=== PATIENT | male | born 1940 | race Caucasian/White ===

== ENCOUNTER 2020-08-27 10:13 | Emergency (ER) | payer MEDICARE, OTHER, SELFPAY ==
[2020-08-27 10:14] VITALS: BP 160/88; PULSE 86; RESP 25; TEMP 36.9; O2SAT 94; BMI 23.9
--- NOTE | 2020-08-27 10:18 | CT_ITS ---
STUDY: CT BRAIN WITHOUT CONTRAST REASON FOR EXAM: Male, 80 years old. Altered mental status. History of lymphoma. RADIATION DOSAGE (If Supplied By Facility): CTDIvol = ( 44.99 ) mGy, DLP = ( 846.73 ) mGycm TECHNIQUE: Transaxial CT imaging of the brain was performed without administration of intravenous contrast material. Individualized dose optimization techniques were used for this CT. COMPARISON: No relevant priors. FINDINGS: Normal soft tissue structures. Normal calvarium. There is moderate cerebral atrophy with widening of the extra-axial spaces and ventricular dilatation. There are areas of decreased attenuation within the white matter tracts of the supratentorial brain, consistent with microvascular disease changes. Normal basal ganglia and thalami. Normal brainstem. Normal cerebellum. There is no intracranial hemorrhage. There are no findings of an acute ischemic infarction. Atherosclerotic calcification of the cavernous portions of the internal carotid arteries bilaterally. Opacification of the left sphenoid sinus. Mucosal thickening of the right sphenoid sinus. CT/Brain/Head without Contrast IMPRESSION: Chronic involutional changes of the brain. Electronically Signed: Woodrow Camp MD at 10:58 EDT , Service support ,
--- NOTE | 2020-08-27 10:18 | EKG12_ITS ---
Test Reason : Blood Pressure : / mmHG Vent. Rate : 079 BPM Atrial Rate : 079 BPM P-R Int : 130 ms QRS Dur : 070 ms QT Int : 354 ms P-R-T Axes : 020 004 028 degrees QTc Int : 405 ms Normal sinus rhythm Normal ECG Confirmed by BUDDY PAL, DAVID ([id number]), photographic editor JEREMIAH HAMEED ([id number]) on 08/28/2020 2:20:08 PM Referred By: ERICKA Confirmed By:DAVID GOODWIN MD
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
--- NOTE | 2020-08-27 10:23 | NURSING ---
NO OLD EKGS
[2020-08-27 10:40] LABS: Bedside Glucose 110 mg/dL (70-110)
--- NOTE | 2020-08-27 10:45 | RAD_ITS ---
STUDY: X-RAY CHEST REASON FOR EXAM: Male, 80 years old. Altered mental status TECHNIQUE: Single AP portable view of the chest. COMPARISON: None. FINDINGS: EKG electrodes are seen. The lungs are clear and expanded. There is no demonstrated pleural abnormality. Normal size heart. Normal mediastinum and kyle. Normal visualized pulmonary arteries. There is atherosclerotic tortuosity of the aortic arch and descending thoracic aorta. There are diffuse degenerative changes of the visualized thoracic spine. There is degenerative osteoarthritis of the bilateral shoulders. There is no demonstrated abnormality of the visualized soft tissue structures of the upper abdomen. RAD/Chest 1 View (Portable) IMPRESSION: No acute abnormality seen. Electronically Signed: Woodrow Camp MD at 11:01 EDT , Service support ,
[2020-08-27 10:57] LABS: ALB/GLOB Ratio 0.9 RATIO (0.9-2.4); AST(SGOT) 17 U/L (15-37); Alanine Aminotransfer ALT/SGPT 28 U/L (16-61); Albumin, Serum 3.4 g/dL (3.2-5.0); Alkaline Phosphatase 71 U/L (45-117); Anion Gap 3 (5-15); BUN 10 mg/dL (7-18); BUN/Creat Ratio 11.3 RATIO (10-20); Calcium,Total 9.4 mg/dL (8.5-10.1); Chloride 105 mmol/L (98-107); Creatinine, Serum 0.88 mg/dL (0.70-1.30); EST Glomerular Filtration Rate 88 mL/min (>60); Est Glom Filt Rate - Afr Amer 107 mL/min (>60); Estimated Creatinine Clearance 71.31 ml/min; Globulin 3.7 g/dL (2.2-4.2); Glucose 111 mg/dL (74-106); Potassium 4.1 mmol/L (3.5-5.1); Protein, Total 7.1 g/dL (6.4-8.2); Sodium Level 140 mmol/L (136-145); Troponin-I HS 4.5 pg/mL (3.0-78.5)
[2020-08-27 10:58] LABS: Alcohol, Blood (Medical)-Serum < 3.0 mg/dL
--- NOTE | 2020-08-27 11:00 | CM.ED ---
SOCIAL WORK Referral Source: Dr. Espinoza Reason for Consult: Discharge planning/Hospice Informed by Dr. Espinoza and nursing, patient from home with [facility]. en route to hospital. Call to Alma Rosa with [facility]. Per Alma Rosa, was planning on [facility]. Alma Rosa states was trying to make decision on code status and was educated on DNR-CCA and DNR-CC. Dr. Espinoza to discuss code status with upon arrival. Anticipate transfer to [facility]. Bouchra Barnard MSW, DIRECTOR OF PERIOPERATIVE SERVICES
[2020-08-27 11:06] LABS: Absolute Lymphocyte Count 0.53 X10^3/uL (0.83-4.51); Absolute Neutrophil Count 4.3 X10^3/uL (2.0-7.7); Basophil# 0.05 X10^3/uL; Basophil% 0.8 % (0-1); Eosinophil# 0.18 X10^3/uL; Eosinophils% 3.1 % (0-5); Hematocrit 43.3 % (40-54); Hemoglobin 14.3 g/dL (13.0-16.5); Lymphocyte # 0.53 X10^3/ul (0.83-4.51); Mean Corpuscular Hgb 28.3 pg (27.0-32.0); Mean Corpuscular Volume 85.7 fL (80-94); Mean Platelet Vol. 9.2 fl (6.2-12.0); Monocyte# 0.78 X10^3/uL; Monocyte% 13.2 % (0-10); NRBC Flagged by Analyzer 0 % (0-5); Neutrophil # 4.33 X10^3/uL (2.7-7.7); Neutrophil % 73.4 % (47-70); POSITIVE DIFFERENTIAL YES; Platelet Count 312 K/mm3 (150-450); RBC Distribution Width CV 13.4 % (11.6-14.6); RBC Distribution Width SD 41.6 fl (35.1-43.9); Red Blood Count 5.05 M/mm3 (4.6-6.2); White Blood Count 5.9 K/mm3 (4.4-11.0)
[2020-08-27 11:13] LABS: Differential Indicated SCAN CRITERIA MET
[2020-08-27 11:40] LABS: Differential Comment SCANNED
[2020-08-27 12:00] LABS: Mucous, Urine 0 SEEN /hpf (<or=2+); Squamous Epithelial Cells - UA 0 SEEN /hpf (0-5); White Blood Cells 0 SEEN /hpf (0-5)
--- NOTE | 2020-08-27 12:00 | CM.ED ---
SOCIAL WORK Met with in room. with questions for Hospice and is wanting patient transferred to inpatient hospice. This worker to update [facility]. Bouchra Barnard, HOT MILL TIN ROLLER, SURVEY DATA TECHNICIAN
[2020-08-27 12:03] LABS: Color, Urine Yellow (Yellow); Glucose, Dipstick Normal (Normal); Ketone-Dipstick Negative (Negative); Leukocyte Esterase-Dipstick Negative /ul (Negative); Nitrite-Dipstick Negative (Negative); Occult Blood-Urine 150 /ul (Negative); Protein-Dipstick Negative (Negative); Specific Gravity, Urine 1.015 (1.002-1.030); Urine Bilirubin Dipstick Negative (Negative); Urine Clarity Cloudy (Clear); Urine Urobilinogen Normal (Normal)
--- NOTE | 2020-08-27 12:08 | CM.ED ---
SOCIAL WORK Hospice nurse to be in to meet with patient and . Staff updated. Bouchra Barnard, LINUX SUPPORT ENGINEER, RIGGING FOREMAN
[2020-08-27 12:11] LABS: Red Blood Cells-Urine 25-50 SEEN /hpf (0-5)
[2020-08-27 12:12] LABS: Amorphous Sediment 1+; Bacteria 2+ /hpf (None Seen)
--- NOTE | 2020-08-27 12:17 | CCN.REFER ---
is poa and states hospice never had her do a dnr and signs a drcc-a. she says she does not know if he is hospice or palliative. says the cancer is now in remission.
[2020-08-27 12:21] VITALS: BP 145/82; PULSE 66; RESP 16; O2SAT 94
[2020-08-27 12:23] LABS: Amphetamine Urine VISTA NEGATIVE (<1000 ng/mL); Barbiturate Urine VISTA NEGATIVE (< 200 ng/mL); Benzodiazepine Urine VISTA NEGATIVE (< 200 ng/mL); Cocaine Urine VISTA NEGATIVE (< 300 ng/mL); Ecstacy Urine VISTA NEGATIVE (< 500 ng/mL); Methadone Urine VISTA NEGATIVE (< 300 ng/mL); PCP Urine VISTA NEGATIVE (< 25 ng/mL); THC Urine VISTA NEGATIVE (< 50 ng/mL); Vista UDS pH Range 7
[2020-08-27 12:29] VITALS: TEMP 37.1
--- NOTE | 2020-08-27 13:06 | ED.RN ---
DNRCC signed by /POA
--- NOTE | 2020-08-27 13:16 | ED.RN ---
Hospice here and working on talking with Dr Hall for transport to their facility for management of his symptoms
[2020-08-27 14:02] VITALS: BP 154/82; PULSE 72; RESP 14; TEMP 36.2; O2SAT 97
[2020-08-27 14:04] VITALS: BP 154/82; PULSE 72; RESP 14; TEMP 36.2; O2SAT 97
--- NOTE | 2020-08-27 14:10 | NURSING ---
rport given to jimenez at [facility] and aware eta of physicians is 1430 here
== END 2020-08-27 15:15 | disposition hospice, inpatient (51) ==
PROVIDERS: Emergency Provider Student in an Organized Health Care Education/Training Program
DX: R41.82 Altered mental status, unspecified (principal)
CPT/HCPCS: 70450; 71045; 80053; 80307; 81001; 82077; 82140; 82962; 84484; 85025; 87426; 93005; 99285; A4216

== ENCOUNTER → 2020-08-29 11:14 | Outpatient (REF) | payer MEDICARE, OTHER, SELFPAY ==
[2020-08-27 10:14] VITALS: BMI 23.9
== END ==
LOC: OLS.HOSPIC 11:14
PROVIDERS: Referring Provider Internal Medicine Cardiovascular Disease; Visit Provider Internal Medicine Cardiovascular Disease
DX: Z03.818 Encounter for observation for suspected exposure to other biological agents ruled out (principal)
CPT/HCPCS: 87635; U0005; U0003